=== PATIENT | female | born 1980 | race Caucasian/White ===

== ENCOUNTER 2023-11-04 04:13 | Inpatient (IN) ==
[2023-11-04 05:22] LABS: ABS Basophils 0.1 10^3/uL (0.0-0.1); ABS Eosinophils 0.1 10^3/uL (0.0-0.5); ABS Lymphocytes 0.5 10^3/uL (1.0-4.8); ABS Monocytes 0.6 10^3/uL (0.0-0.9); Eosinophil % 1.1 %; Hematocrit 38.3 % (35-45); Hemoglobin 12.7 g/dL (11.5-14.3); Lymphocyte % 5.6 %; Mean Corpuscular Hemoglobin 27.8 pg (27-33); Mean Corpuscular Hgb Conc 33.3 g/dL (31-36); Mean Corpuscular Volume 83.6 fL (80-97); Mean Platelet Volume 7.3 fL (7.5-11.2); Platelet Count 360 10^3/uL (150-450); Red Blood Count 4.58 10^6/uL (3.63-4.92); Red Cell Distribution Width 17.4 % (12-17); White Blood Count 8.2 10^3/uL (3.8-11.8)
[2023-11-04 05:33] LABS: Venous Bicarbonate HCO3 26.1 mmol/L (24-28)
[2023-11-04] MEDS: Lactated Ringers 1000 ml BAG 1,000 ML IV ONE ×2 (05:40→06:11)
[2023-11-04] MEDS: Albuterol 2.5mg/3 ml (0.083%) NEB.SOLN INH ONE (06:05)
[2023-11-04 06:13] LABS: ALT 15 U/L (7-52); Albumin 4.6 g/dL (3.2-5.2); Albumin/Globulin Ratio 1.5 (1-3); Alcohol, S < 13 mg/dL (<13); Alkaline Phosphatase 64 U/L (35-149); Anion Gap 12 mmol/L (2-16); Blood Urea Nitrogen 7 mg/dL (6-24); C Reactive Protein 84.95 mg/L (<8.01); CO2 Carbon Dioxide 26 mmol/L (22-32); Calcium 9.2 mg/dL (8.6-10.3); Chloride 100 mmol/L (101-111); Globulin 3.1 g/dL (2-4); Glucose 104 mg/dL (70-100); HCG Pregnancy < 0.60 mIU/mL; Sodium 138 mmol/L (135-145); Total Bilirubin 0.5 mg/dL (0.2-1.0); Total Protein 7.7 g/dL (6.4-8.9)
[2023-11-04] MEDS: Prochlorperazine 5 mg/ml 2 ml VIAL (10 mg) IV ONE (06:42)
[2023-11-04 06:44] LABS: INR 1.1 (0.83-1.13)
[2023-11-04 08:55] LABS: Albumin 3.9 g/dL (3.2-5.2); Albumin/Globulin Ratio 1.7 (1-3); C Reactive Protein 77.12 mg/L (<8.01); Calcium 8.4 mg/dL (8.6-10.3); Creatinine, Serum 0.42 mg/dL (0.51-0.95); Globulin 2.3 g/dL (2-4); Potassium 3.5 mmol/L (3.5-5.0); Total Bilirubin 0.3 mg/dL (0.2-1.0); Total Protein 6.2 g/dL (6.4-8.9); eGFR CKD-EPI 125.2 (>60)
[2023-11-04 08:56] LABS: Potassium Redraw 3.6 mmol/L (3.5-5.0)
[2023-11-04 09:20] LABS: Urine Appearance Clear; Urine Bilirubin Negative (Negative); Urine Blood Trace (Negative); Urine Color Light-Yellow; Urine Glucose Negative (Negative); Urine Ketones Trace (Negative); Urine Nitrite Negative (Negative); Urine Protein Trace (Negative); Urine Specific Gravity 1.019 (1.002-1.030); Urine Urobilinogen Negative (Negative)
[2023-11-04 09:37] LABS: Urine Benzodiazepine Screen None Detected (None Detect); Urine Cannabinoids Screen Presumptive Positive (None Detect); Urine Opiates Screen None Detected (None Detect)
[2023-11-04] MEDS: Iohexol 350 (CONTRAST) 500 ML MDV IV ONE (10:58)
[2023-11-04] MEDS: cefTRIAXone 1 gm/50 mL D5W 1 GM/50 ML BAG IV ONE (11:58)
[2023-11-04] MEDS: methylPREDNISolone SOD SUCC 125 mg 2 ML VIAL IV ONE (12:03)
[2023-11-04] MEDS: Azithromycin 500 mg/250 ml NS 500 MG/250 ML BAG IVPB ONE (12:06)
[2023-11-04] MEDS: Amoxicillin/Clavul 875/125 TAB (Augmentin 875 tab) PO ONE (12:13)
[2023-11-04] MEDS: Albuterol/Ipratropium NEB.SOL (2.5/0.5 MG) 3 ML NEB.SOLN INH PRN (12:31)
[2023-11-04] MEDS: Acetaminophen IV 1 GM/100ML 1,000 MG/100 ML BAG IV PRN (15:34)
[2023-11-04] MEDS: Nicotine PATCH 21 MG/24 HR PATCH TRANSDERM SCH (15:36)
[2023-11-04] MEDS: Enoxaparin 40 MG/0.4 ML SYR SUBCUT SCH (20:39)
[2023-11-05] MEDS ORDERED: LORazepam 2 mg VIAL 1 ml IV PUSH ONE (09:46)
[2023-11-05] MEDS ORDERED: Lorazepam PYXIS KEY PRN ×2 (09:46)
[2023-11-05] MEDS: Morphine 2 MG/ML SYRINGE IV PRN (10:27)
[2023-11-05] MEDS: diazePAM INJ CARPUJECT 5 MG/ML SYRINGE IV PRN (10:28)
[2023-11-05 11:34] LABS: ABS Eosinophils 0.1 10^3/uL (0.0-0.5); ABS Neutrophils 7.2 10^3/uL (1.5-7.6); Eosinophil % 0.7 %; Hematocrit 35.2 % (35-45); Hemoglobin 11.6 g/dL (11.5-14.3); Lymphocyte % 11.2 %; Mean Corpuscular Hemoglobin 27.6 pg (27-33); Mean Corpuscular Hgb Conc 32.9 g/dL (31-36); Mean Corpuscular Volume 83.8 fL (80-97); Mean Platelet Volume 7.3 fL (7.5-11.2); Platelet Count 378 10^3/uL (150-450); White Blood Count 9.3 10^3/uL (3.8-11.8)
[2023-11-05 11:54] LABS: Calcium 9.5 mg/dL (8.6-10.3); Creatinine, Serum 0.69 mg/dL (0.51-0.95); Potassium 3.6 mmol/L (3.5-5.0); eGFR CKD-EPI 111.1 (>60)
[2023-11-05] MEDS: cefTRIAXone 1 gm/50 mL D5W 1 GM/50 ML BAG IV SCH (12:29)
[2023-11-05] MEDS: Azithromycin 500 mg/250 ml NS 500 MG/250 ML BAG IVPB SCH (13:48)
[2023-11-05] MEDS: Albuterol HFA INHALER 8 gm MDI INH SCH (13:51)
[2023-11-05] MEDS: Mometasone/Formoter 200/5 MDI INH SCH (19:05)
[2023-11-05] MEDS: Albuterol/Ipratropium NEB.SOL (2.5/0.5 MG) 3 ML NEB.SOLN INH PRN (19:05)
[2023-11-05] MEDS: Al Hydrox/Mg Hydrox/Simet LIQ 30 ML UDC PO ONE (20:08)
[2023-11-05 21:24] VITALS: BP 142/90
[2023-11-06] MEDS: DOXYcycline 100 MG in NS 0.9% 250 ml 250 ML IVPB SCH (11:13)
== END 2023-11-06 14:50 | disposition home or self-care (01) | DRG 193 ==
LOC: EDHOLD 04:13 → ED 04:13 → SUATTDRO 12:04 → MED 13:31
PROVIDERS: ADMIT Student in an Organized Health Care Education/Training Program; ATTEND Internal Medicine